=== PATIENT | male | born 1995 | race Asian ===

== ENCOUNTER 2016-06-15 18:05 | Emergency (ER) | payer OTHER ==
[~2016-06-15] VITALS: Ht 175.3 cm; Wt 87.2 kg
[2016-06-15 18:06] VITALS: TEMP 36.6; Ht 175.3 cm; Wt 87.2 kg
[2016-06-15 18:44] LABS: BASO % 0.4 %; BASO ABS # 0.03 K/uL (0-0.2); COMPLETE YES; EOS % 3.3 %; HEMATOCRIT 44.9 % (42-52); LYMPH % 47.7 %; LYMPH ABS # 3.21 K/uL (1.2-3.4); MEAN CELL VOLUME 86.7 fL (80-100); MEAN CORPUSCULAR HEMOGLOBIN 30.5 pg (25-34); MEAN CORPUSCULAR HGB CONC 35.2 g/dl (32-36); MEAN PLATELET VOLUME 9.2 fL (7.4-10.4); MONO % 8.6 %; PLATELET COUNT 402 K/uL (130-400); RED BLOOD COUNT 5.18 M/uL (4.7-6.1); WHITE BLOOD COUNT 6.73 K/uL (4.8-10.8)
[2016-06-15 19:02] LABS: BUN/CREATININE RATIO 12.3 (10-20); CALCIUM 8.9 mg/dl (8.5-10.1); CREATININE 0.88 mg/dl (0.60-1.40); POTASSIUM 3.8 mmol/L (3.5-5.1)
[2016-06-15 19:13] LABS: ALB/GLOB RATIO 1.2 (0.9-2); THYROID STIMULATING HORMONE 1.05 uIu/ml (0.300-4.500)
[2016-06-15 19:33] LABS: LYME DISEASE AB IGG NEG (NEG); LYME DISEASE AB IGM NEG (NEG)
--- NOTE | 2016-06-15 19:50 | EMERGENCY ROOM VISIT NOTE ---
History First contact with patient: 18:12 Chief Complaint: BITE Stated Complaint: BIT BY CAT WEEK AGO,WEAK,TIRED History of Present Illness The patient is a 20 year old male who presents to the Emergency Room with complaints of fatigue and body aches. The patient states that he was bit by a cat on his left thigh 1 week ago. He states that the cat belongs to a friend and all of the cats vaccinations are up-to-date. There are no signs of infection of the area. The patient denies any redness, swelling or drainage. He does report that he has been feeling tired over the past one week and has had aches in his lower back and behind the right knee. He denies any fevers, chest pain, shortness of breath, nausea, vomiting, headache or neck pain. Review of Systems A complete 10-point Review of Systems was discussed with the patient, with pertinent positives and negatives listed in the History of Present Illness. All remaining Review of Systems questions can be considered negative unless otherwise specified. Social History Smoking Status: Never Smoker Current/Historical Medications No Active Prescriptions or Reported Meds Allergies Coded Allergies: No Known Allergies (Unverified , 06/15/16) Physical Exam Vital Signs Date Time Temp Pulse Resp B/P Pulse Ox O2 Delivery O2 Flow Rate FiO2 06/15/16 19:51 79 18 121/80 98 Room Air 06/15/16 18:06 36.6 79 20 125/84 96 Room Air Physical Exam VITALS: Vitals are noted on the nurse's note and reviewed by myself. Vital signs stable. GENERAL: [], in no acute distress, nondiaphoretic, well-developed well- nourished. SKIN: Capillary reflex less than 2 seconds. No puncture wounds. No erythema, edema or drainage. HEENT: Normocephalic. PERRLA. EOMI. Nares patent. Mucous membranes moist. Neck is supple without nuchal rigidity. HEART: Regular rate and rhythm without murmurs gallops or rubs. LUNGS: Clear to auscultation bilaterally without wheezes, rales or rhonchi. No retractions or accessory muscle use. ABDOMEN: Positive bowel sounds x 4. Soft, nontender. MUSCULOSKELETAL: No significant tenderness to palpation. NEURO: Patient was alert and oriented to person place and time. Normal sensation to light and sharp touch. Medical Decision & Procedures Laboratory Results 06/15/16 18:30 Red Blood Count 5.18, Mean Corpuscular Volume 86.7, Mean Corpuscular Hemoglobin 30.5, Mean Corpuscular Hemoglobin Concent 35.2, Mean Platelet Volume 9.2, Neutrophils (%) (Auto) 40.0, Lymphocytes (%) (Auto) 47.7, Monocytes (%) (Auto) 8.6, Eosinophils (%) (Auto) 3.3, Basophils (%) (Auto) 0.4, Neutrophils # (Auto) 2.69, Lymphocytes # (Auto) 3.21, Monocytes # (Auto) 0.58, Eosinophils # (Auto) 0.22, Basophils # (Auto) 0.03 06/15/16 18:30 Test 06/15/16 18:30 White Blood Count 6.73 K/uL (4.8-10.8) Red Blood Count 5.18 M/uL (4.7-6.1) Hemoglobin 15.8 g/dL (14.0-18.0) Hematocrit 44.9 % (42-52) Mean Corpuscular Volume 86.7 fL (80-100) Mean Corpuscular Hemoglobin 30.5 pg (25-34) Mean Corpuscular Hemoglobin Concent 35.2 g/dl (32-36) Platelet Count 402 K/uL (130-400) Mean Platelet Volume 9.2 fL (7.4-10.4) Neutrophils (%) (Auto) 40.0 % Lymphocytes (%) (Auto) 47.7 % Monocytes (%) (Auto) 8.6 % Eosinophils (%) (Auto) 3.3 % Basophils (%) (Auto) 0.4 % Neutrophils # (Auto) 2.69 K/uL (1.4-6.5) Lymphocytes # (Auto) 3.21 K/uL (1.2-3.4) Monocytes # (Auto) 0.58 K/uL (0.11-0.59) Eosinophils # (Auto) 0.22 K/uL (0-0.5) Basophils # (Auto) 0.03 K/uL (0-0.2) RDW Standard Deviation 39.2 fL (36.4-46.3) RDW Coefficient of Variation 12.3 % (11.5-14.5) Immature Granulocyte % (Auto) 0.0 % Immature Granulocyte # (Auto) 0.00 K/uL (0.00-0.02) Anion Gap 7.0 mmol/L (3-11) Est Creatinine Clear Calc Drug Dose 144.0 ml/min Estimated GFR () 141.3 Estimated GFR (Non- 121.9 BUN/Creatinine Ratio 12.3 (10-20) Calcium Level 8.9 mg/dl (8.5-10.1) Total Bilirubin 0.6 mg/dl (0.2-1) Aspartate Amino Transf (AST/SGOT) 19 U/L (15-37) Alanine Aminotransferase (ALT/SGPT) 49 U/L (12-78) Alkaline Phosphatase 70 U/L (45-117) Total Protein 8.2 gm/dl (6.4-8.2) Albumin 4.5 gm/dl (3.4-5.0) Globulin 3.7 gm/dl (2.5-4.0) Albumin/Globulin Ratio 1.2 (0.9-2) Thyroid Stimulating Hormone (TSH) 1.050 uIu/ml (0.300-4.500) Lyme Disease IgG Antibody NEG (NEG) Lyme Disease IgM Antibody NEG (NEG) Monoscreen NEG (NEG) Medical Decision The patient was evaluated as above. I do not feel that his symptoms are due to the cat bite. There are no signs of infection in the area where the bite occurred. Labs were drawn and IV access was obtained. Labs revealed no leukocytosis or anemia. There were no concerning electrolyte abnormalities. Lyme screen was negative. Monospot was negative. Thyroid studies were within normal limits. The patient was instructed to follow-up with her [facility] for further evaluation of these symptoms. He verbalized understanding of my assessment and treatment plan and was discharged home in good condition. Impression Primary Impression: Fatigue Departure Information Dispostion Home / Self-Care Condition GOOD Prescriptions No Active Prescriptions or Reported Meds Referrals No Doctor, Assigned (PCP) Patient Instructions My [facility] Additional Instructions Labs today were ok. Follow-up with [facility] if you have persistent fatigue or any other worsening symptoms. Return to the emergency department with any new/concerning symptoms. Problem Qualifiers Primary Impression: Fatigue
[2016-06-15 19:51] VITALS: BP 121/80; PULSE 79; O2SAT 98
== END 2016-06-15 19:57 | disposition home or self-care (01) ==
LOC: C.EDB 18:07 → C.EDA 19:57
DX: S70.372A Other superficial bite of left thigh, initial encounter (principal); W55.01XA Bitten by cat, initial encounter; Y92.89 Other specified places as the place of occurrence of the external cause; R53.83 Other fatigue